=== PATIENT | female | born 1950 | race Caucasian/White ===

== ENCOUNTER 2022-08-05 11:33 | Outpatient (REF) | payer MEDICARE, OTHER, SELFPAY ==
--- NOTE | ~2022-08-05 | XR_ITS ---
EXAMINATION: XR LUMBOSACRAL SPINE CLINICAL INFORMATION: Postlaminectomy syndrome. Pain COMPARISON: None available. TECHNIQUE: Three views of the lumbosacral spine. FINDINGS: Patient is status post fusion of L2-L3 and L3-L4 with the hardware along the right side of the vertebral bodies and with spacers placement at the same level. There is straightening of lumbar lordosis and narrowing of T12-L1 intervertebral disc space XR/XR lumbar spine 2-3V IMPRESSION: Postsurgical changes with hardware in place.
--- NOTE | ~2022-08-05 | XR_ITS ---
EXAMINATION: XR PELVIS CLINICAL INFORMATION: Sacrococcygeal disorder COMPARISON: None available. TECHNIQUE: AP view of the pelvis and lateral view of the sacrum. FINDINGS: The bones and soft tissues are normal. No fracture. Sacroiliac and hip joints are normal. Pubic symphysis is normal. No abnormal soft tissue calcifications. Sacrum is unremarkable XR/XR pelvis min 3V IMPRESSION: Normal pelvis.
== END 2022-08-05 11:34 | disposition home or self-care (01) ==
LOC: HO.XRAY 11:33
PROVIDERS: PCP Family Medicine; Visit Provider Anesthesiology
DX: M53.3 Sacrococcygeal disorders, not elsewhere classified (principal); M46.1 Sacroiliitis, not elsewhere classified; M96.1 Postlaminectomy syndrome, not elsewhere classified; I10 Essential (primary) hypertension; E03.9 Hypothyroidism, unspecified
CPT/HCPCS: 72100; 72190; 99202

== ENCOUNTER 2022-08-20 06:07 | Outpatient (REF) | payer MEDICARE, OTHER, SELFPAY ==
--- NOTE | ~2022-08-20 | FL_ITS ---
EXAMINATION: XR FLUOROSCOPY WITH IMAGES CLINICAL INFORMATION: Sacrococcygeal disorders, not elsewhere classified COMPARISON: None available. TECHNIQUE: Fluoroscopy Supervised By: Dr. Grant. Fluoroscopy Time: 0.1. Cumulative Dose: 2.77 mGy. DAP: 0.452 Gycm2. Images: 1. FINDINGS: Images demonstrate needle placement and contrast injection of the right sacroiliac joint. FL/FL guidance in treatment room IMPRESSION: Fluoroscopy guidance for right sacroiliac joint injection.
== END 2022-08-20 06:08 | disposition home or self-care (01) ==
LOC: CF 06:07
PROVIDERS: Visit Provider Anesthesiology
DX: M53.3 Sacrococcygeal disorders, not elsewhere classified (principal); M46.1 Sacroiliitis, not elsewhere classified; M96.1 Postlaminectomy syndrome, not elsewhere classified
CPT/HCPCS: 27096

== ENCOUNTER → 2022-08-22 09:50 | Outpatient (BNVA) | payer MEDICARE, OTHER, SELFPAY | PROVIDERS: PCP Family Medicine; Visit Provider Anesthesiology | DX: M46.1 Sacroiliitis, not elsewhere classified (principal); M53.3 Sacrococcygeal disorders, not elsewhere classified; M96.1 Postlaminectomy syndrome, not elsewhere classified | CPT/HCPCS: 99212 ==

== ENCOUNTER → 2022-08-28 10:44 | Outpatient (BNVA) | payer MEDICARE, OTHER, SELFPAY | PROVIDERS: PCP Family Medicine; Visit Provider Anesthesiology | DX: M46.1 Sacroiliitis, not elsewhere classified (principal); M53.3 Sacrococcygeal disorders, not elsewhere classified; M96.1 Postlaminectomy syndrome, not elsewhere classified | CPT/HCPCS: 99212 ==

== ENCOUNTER 2022-10-23 14:10 | Outpatient (AMB) | payer MEDICARE, OTHER, SELFPAY ==
--- NOTE | 2022-10-23 14:14 | MHC.OFFVIS ---
Intake Vital Signs 10/23/22 14:20 Height 5 ft 6 in Weight 187 lb 8 oz BMI 30.3 BP 138/82 Blood Pressure Location Lt brachial Position Sitting Respiration 18 Pulse 60 Pulse Source Pulse Oximeter Pulse Oximetry (%) 98 Oxygen Delivery Method Room Air Intake Visit Reasons: follow up about SIJ Fusion Intake Note: patient comes in for pill count. Allergies Sulfa (Sulfonamide Antibiotics) [SULFA (SULFONAMIDE ANTIBIOTICS)] Allergy (Mild, Verified 10/23/22 14:21) HIVES HPI HPI Comments History of Present Illness Details Ria is back in my office to discuss possibility of sacroiliac joint fusion procedure. I explained everything about the procedure to the patient. I personally believe that she might be noted trivial airway and we will refer her to [facility]. In any way she cannot have household help before the end of December. She would need to schedule her procedure in January. Mobility limitations after sacroiliac joint fusion were explained to the patient. Activities of daily living related to the sacroiliac joint fusion were also explained to the patient. Prior: a very pleasant 72 years old female who came to days ago for right sacroiliac joint diagnostic injection. She came today to discuss possibility of treating her sacroiliac joint pain. Prolonged and extensive conversation was done to discuss the procedure of sacroiliac joint innervation stimulation curonix versus sacroiliac joint fusion with pain tech. She chose to go for sacroiliac joint fusion. She denies history of osteoporosis. the results of diagnostic right sacroiliac joint injection is very encouraging:. She reported on 1st couple of hours 50% pain relief, on next couple of hours she reported 100% pain relief, she reported excellent range of motion and better activities of daily living she reported significant improvement of night sleep after the procedure. She reported that she did not sleep for long period of time the way she slept last night after the procedure. The pain is starting to come back at this time. She does not have osteoporosis. I offered her SI joint stabilization and fusion with allograft. She wants to see the device on her own and she would like to schedule in person appointment, I will explain to her SI joint fusion SI joint innervation stimulation as well as SI joint therapeutic steroid injections. Review of Systems Const All systems reviewed & are unremarkable except as noted in HPI and below Physical Exam Vital Signs: Last Vital Signs Pulse 60 10/23/22 14:20 Resp 18 08/23/23 14:20 BP 138/82 10/23/22 14:20 Pulse Ox 98 10/23/22 14:20 Oxygen Delivery Method Room Air 10/23/22 14:20 BMI result Body Mass Index 30.3 Const General: no acute distress Nutritional Appearance: average body habitus and overweight Eyes General: appearance normal, both eyes and all related structures EOM: EOMs intact bilaterally Neck Neck: Yes full ROM Chest Chest palpation & inspection: normal inspection of the chest Resp Effort & Inspection: normal respiratory effort, able to speak in complete sentences, normal respiratory pattern, no audible wheezes and no cough Cardio Jugular venous distension: no JVD GI Inspection: Yes normal to inspection Back/Spine/Pelvis Other: Very well-healed scar on the right flank evident of previous fusion lumbar. Jalil test is positive on the right. Gaenslen test is positive on the right. Fourteen finger test is negative bilaterally. Pelvis compression test is positive for the pain on the right. Pelvic distruction test is positive on the right. SLR is negative bilaterally although she reports some discomfort in the back on SLR on the right. Extrem General: No pedal edema Psych Speech and movement: Normal speech and movement present Affect: normal affect Attitude: cooperative Thought process: Normal thought process present Thought content: Normal thought content present Insight: Good insight present (Psych) Judgement: Good judgement present (Psych) Assessment & Plan Assessment & Plan (1) Sacroiliitis: Code(s): M46.1 - Sacroiliitis, not elsewhere classified (2) Sacroiliac dysfunction: Code(s): M53.3 - Sacrococcygeal disorders, not elsewhere classified (3) Postlaminectomy syndrome of lumbar region: Code(s): M96.1 - Postlaminectomy syndrome, not elsewhere classified Plan This patient came to me with intention to receive sacroiliac joint PNS, she read about it in the Flyer. The nature of the procedure was exhaustively explained to the patient need for psychological evaluation was explained to the patient. Sacroiliac joint stabilization with fusion also was discussed. She chose to go for sacroiliac joint fusion. She stated that she had no history of osteoporosis in the past. She is nonsmoker. I think she might be a good candidate for sacroiliac joint fusion. She is unable to go for the procedure until the end of the December when she will have household help to help her with recovery. She will schedule the appointment accordingly with OR scheduling. Limitations were explained to the patient in activities of daily living as well as in mobilities. She will be sent to PAT with anesthesiology because she might be a potential difficult airway. Sacroiliac joint innervation stimulation was also briefly discussed. Coding Level of Care Code Est Pt Level 4 (45573) Diagnoses Sacroiliitis M46.1 Sacroiliac dysfunction M53.3 Postlaminectomy syndrome of lumbar region M96.1
[2022-10-23 14:20] VITALS: BP 138/82; PULSE 60; RESP 18; O2SAT 98; BMI 30.3
== END 2022-10-23 14:33 | disposition home or self-care (01) ==
PROVIDERS: PCP Family Medicine; Visit Provider Anesthesiology
DX: M46.1 Sacroiliitis, not elsewhere classified (principal); M53.3 Sacrococcygeal disorders, not elsewhere classified; M96.1 Postlaminectomy syndrome, not elsewhere classified
CPT/HCPCS: 99214

== ENCOUNTER → 2022-10-23 14:10 | Outpatient (BNVA) | payer MEDICARE, OTHER, SELFPAY | PROVIDERS: PCP Family Medicine; Visit Provider Anesthesiology | DX: Z51.81 Encounter for therapeutic drug level monitoring (principal); M96.1 Postlaminectomy syndrome, not elsewhere classified; M53.3 Sacrococcygeal disorders, not elsewhere classified | CPT/HCPCS: 99212 ==

== ENCOUNTER 2022-11-26 06:07 | Outpatient (REF) | payer MEDICARE, OTHER, SELFPAY ==
--- NOTE | ~2022-11-26 | FL_ITS ---
EXAMINATION: XR FLUOROSCOPY WITH IMAGES CLINICAL INFORMATION: Sacrococcygeal disorders, not elsewhere classified. Right sacroiliac joint. COMPARISON: None available. TECHNIQUE: Fluoroscopy Supervised By: Dr. Raul Grant. Fluoroscopy Time: 0.0 minutes. Cumulative Dose: 1.34 mGy. DAP: 0.367 Gycm2. Images: 1. FINDINGS: Images demonstrate needle placement and contrast injection of the right sacroiliac joint FL/FL guidance in treatment room IMPRESSION: Fluoroscopy guidance for sacroiliac joint injection
== END 2022-11-26 06:08 | disposition home or self-care (01) ==
LOC: CF 06:07
PROVIDERS: Visit Provider Anesthesiology
DX: M53.3 Sacrococcygeal disorders, not elsewhere classified (principal); M46.1 Sacroiliitis, not elsewhere classified; M96.1 Postlaminectomy syndrome, not elsewhere classified
CPT/HCPCS: 27096; J3301

== ENCOUNTER 2022-11-26 13:25 | Outpatient (AMB) | payer MEDICARE, OTHER, SELFPAY ==
--- NOTE | 2022-11-26 13:22 | MHC.OFFVIS ---
Intake Vital Signs 11/26/22 13:23 11/26/22 14:05 Height 5 ft 6 in 5 ft 6 in Weight 187 lb 187 lb BMI 30.2 30.2 BP 140/82 H 134/74 Blood Pressure Location Lt brachial Rt brachial Position Sitting Sitting Respiration 16 16 Pulse 58 58 Pulse Source Pulse Oximeter Pulse Oximeter Pulse Oximetry (%) 97 97 Oxygen Delivery Method Room Air Room Air Comment pre-op post-op Intake Visit Reasons: RIGHT THERAPEUTIC SIJ INJECTION Allergies Sulfa (Sulfonamide Antibiotics) [SULFA (SULFONAMIDE ANTIBIOTICS)] Allergy (Mild, Verified 11/26/22 13:22) HIVES Physical Exam Vital Signs: Last Vital Signs Pulse 58 11/26/22 14:05 Resp 16 11/26/22 14:05 BP 134/74 11/26/22 14:05 Pulse Ox 97 11/26/22 14:05 Oxygen Delivery Method Room Air 11/26/22 14:05 BMI result Body Mass Index 30.2 Assessment & Plan Assessment & Plan (1) Sacroiliitis: Code(s): M46.1 - Sacroiliitis, not elsewhere classified (2) Sacroiliac dysfunction: Code(s): M53.3 - Sacrococcygeal disorders, not elsewhere classified (3) Postlaminectomy syndrome of lumbar region: Code(s): M96.1 - Postlaminectomy syndrome, not elsewhere classified Plan: Right therapeutic sacroiliac joint injection Informed consent was explained thoroughly to the patient. All questions about benefits and risks for the procedure were answered. Patient came to the operating room and was positioned prone on the operating table with the pillow under the pelvis. Time out was performed delineating name and of the patient, allergies and the nature of the procedure. The lower back and buttocks of the patient were prepped with ChloraPrep prepped and draped with sterile utility towels. C-arm was brought over the operating field and sq picture of patient's pelvis was demonstrated on the screen. For the right joint tilting C-arm contralateral to the site of the joint the most posterior portion of the joints was superimposed with anterior silhouette of the joint. Skin was injected in the projection of the joint slightly medial to the location of the joint with 25 gauge 1/2 inch needle using local lidocaine 2% .After that 22 gauge 3 and 1/2 inch needle was driven to the right joint in tunnel vision fashion. When needle entered the joint capsule injection of the contrast was performed demonstrating intra-articular and minimally periarticular spread of the contrast. After that 4 cc. of ropivacaine 0.5% mixed with kenalog 40 mg was injected into the joint. Upon completion of the injections the needle was removed Sterile dressing was applied. Upon completion of the injection patient was taken outside of the operating room to the recovery room where recovered uneventfully. Plan This patient came to me with intention to receive sacroiliac joint PNS, she read about it in the Flyer. The nature of the procedure was exhaustively explained to the patient need for psychological evaluation was explained to the patient. Sacroiliac joint stabilization with fusion also was discussed. She chose to go for sacroiliac joint fusion. She stated that she had no history of osteoporosis in the past. She is nonsmoker. I think she might be a good candidate for sacroiliac joint fusion. She is unable to go for the procedure until the end of the December when she will have household help to help her with recovery. She will schedule the appointment accordingly with OR scheduling. Limitations were explained to the patient in activities of daily living as well as in mobilities. She will be sent to PAT with anesthesiology because she might be a potential difficult airway. Sacroiliac joint innervation stimulation was also briefly discussed. Coding Level of Care Code Procedure Only Diagnoses Sacroiliitis M46.1 Sacroiliac dysfunction M53.3 Postlaminectomy syndrome of lumbar region M96.1
[2022-11-26 13:23] VITALS: BP 140/82; PULSE 58; RESP 16; O2SAT 97; BMI 30.2
[2022-11-26 14:05] VITALS: BP 134/74; PULSE 58; RESP 16; O2SAT 97; BMI 30.2
== END 2022-11-26 14:03 | disposition home or self-care (01) ==
LOC: HO.PMCPRC 13:25
PROVIDERS: PCP Family Medicine; Visit Provider Anesthesiology
DX: M46.1 Sacroiliitis, not elsewhere classified (principal); M53.3 Sacrococcygeal disorders, not elsewhere classified; M96.1 Postlaminectomy syndrome, not elsewhere classified
CPT/HCPCS: 27096

== ENCOUNTER 2022-12-23 12:59 | Outpatient (AMB) | payer MEDICARE, OTHER, SELFPAY ==
[2022-12-23 13:22] VITALS: BP 190/89; PULSE 62; O2SAT 93; BMI 30.2
--- NOTE | 2022-12-23 13:22 | MHC.OFFVIS ---
Intake Vital Signs 12/23/22 13:22 Height 5 ft 6 in Weight 187 lb BMI 30.2 BP 190/89 H Blood Pressure Location Lt brachial Position Sitting Pulse 62 Pulse Source Pulse Oximeter Pulse Oximetry (%) 93 Oxygen Delivery Method Room Air Intake Visit Reasons: RIGHT THERAPEUTIC SIJ INJECTION Intake Note: Pt states SIJ steroid inj only gave relief for 2 days. BP re-check 138/76 manual cuff Allergies Sulfa (Sulfonamide Antibiotics) [SULFA (SULFONAMIDE ANTIBIOTICS)] Allergy (Mild, Verified 12/23/22 13:24) HIVES Medication List - Last Reconciled 12/23/22 by Delmi Cole RN amlodipine mg PO furosemide 20 mg PO DAILY hydrocortisone 2.5% appl topical BID levothyroxine 150 mcg PO DAILY losartan 100 mg PO DAILY metoprolol succinate ER 100 mg PO DAILY sertraline 100 mg PO DAILY tramadol 50 mg PO BID PRN HPI HPI Comments History of Present Illness Details Ria is back in my office to discuss the results of therapeutic sacroiliac joint injection which was performed on 11/26/2022. It was done on insurance demand to perform this procedure. However the attention was attracted today that the patient reported only 2 days of pain relief on therapeutic injection of the sacroiliac joint. Also she is scheduled for CT scan to evaluate the bony pelvis. Still possibility exists that her pain is not related to the sacroiliac joint. Pathology in the pelvic pain needs to be ruled out. Also I would like to perform diagnostic sacroiliac joint innervation injection under sedation on the right for this patient to make sure that I am dealing with the correct pain generator. In the past we were in preparation of sacroiliac joint fusion procedure. I explained everything about the procedure to the patient. I personally believe that she might be noted trivial airway and we will refer her to [facility]. In any way she cannot have household help before the end of December. She would need to schedule her procedure in January. Mobility limitations after sacroiliac joint fusion were explained to the patient. Activities of daily living related to the sacroiliac joint fusion were also explained to the patient. Prior: a very pleasant 72 years old female who came to days ago for right sacroiliac joint diagnostic injection. She came today to discuss possibility of treating her sacroiliac joint pain. Prolonged and extensive conversation was done to discuss the procedure of sacroiliac joint innervation stimulation curonix versus sacroiliac joint fusion with pain tech. She chose to go for sacroiliac joint fusion. She denies history of osteoporosis. the results of diagnostic right sacroiliac joint injection is very encouraging:. She reported on 1st couple of hours 50% pain relief, on next couple of hours she reported 100% pain relief, she reported excellent range of motion and better activities of daily living she reported significant improvement of night sleep after the procedure. She reported that she did not sleep for long period of time the way she slept last night after the procedure. The pain is starting to come back at this time. She does not have osteoporosis. I offered her SI joint stabilization and fusion with allograft. She wants to see the device on her own and she would like to schedule in person appointment, I will explain to her SI joint fusion SI joint innervation stimulation as well as SI joint therapeutic steroid injections. Review of Systems Const All systems reviewed & are unremarkable except as noted in HPI and below Physical Exam Vital Signs: Last Vital Signs Pulse 62 12/23/22 13:22 BP 190/89 H 12/23/22 13:22 Pulse Ox 93 12/23/22 13:22 Oxygen Delivery Method Room Air 12/23/22 13:22 BMI result Body Mass Index 30.2 Const General: no acute distress Nutritional Appearance: average body habitus and overweight Eyes General: appearance normal, both eyes and all related structures EOM: EOMs intact bilaterally Neck Neck: Yes full ROM Chest Chest palpation & inspection: normal inspection of the chest Resp Effort & Inspection: normal respiratory effort, able to speak in complete sentences, normal respiratory pattern, no audible wheezes and no cough Cardio Jugular venous distension: no JVD GI Inspection: Yes normal to inspection Back/Spine/Pelvis Other: Very well-healed scar on the right flank evident of previous fusion lumbar. Jalil test is positive on the right. Gaenslen test is positive on the right. Fourteen finger test is negative bilaterally. Pelvis compression test is positive for the pain on the right. Pelvic distruction test is positive on the right. SLR is negative bilaterally although she reports some discomfort in the back on SLR on the right. Extrem General: No pedal edema Psych Speech and movement: Normal speech and movement present Affect: normal affect Attitude: cooperative Thought process: Normal thought process present Thought content: Normal thought content present Insight: Good insight present (Psych) Judgement: Good judgement present (Psych) Assessment & Plan Assessment & Plan (1) Sacroiliitis: Code(s): M46.1 - Sacroiliitis, not elsewhere classified (2) Sacroiliac dysfunction: Code(s): M53.3 - Sacrococcygeal disorders, not elsewhere classified (3) Postlaminectomy syndrome of lumbar region: Code(s): M96.1 - Postlaminectomy syndrome, not elsewhere classified (4) Chronic right sacroiliac joint pain: Code(s): M53.3 - Sacrococcygeal disorders, not elsewhere classified; G89.29 - Other chronic pain Plan This patient came to me with intention to receive sacroiliac joint PNS, she read about it in the Flyer. The nature of the procedure was exhaustively explained to the patient need for psychological evaluation was explained to the patient. Sacroiliac joint stabilization with fusion also was discussed. She chose to go for sacroiliac joint fusion. She stated that she had no history of osteoporosis in the past. She is nonsmoker. I think she might be a good candidate for sacroiliac joint fusion. She is unable to go for the procedure until the end of the December when she will have household help to help her with recovery. She will schedule the appointment accordingly with OR scheduling. The insurance requirements for this procedure to perform sacroiliac joint injection with steroids before proceeding with SI joint stabilization with fusion. The patient unfortunately on this procedure reported only 2 days of pain improvement. That is very unusual response to sacroiliac joint injection in the patient who had diagnostic injection with excellent pain relief. Now I have my doubts about her pain generator. I will schedule her for diagnostic sacroiliac joint innervation injection to formally assert or eliminate SI joint is her pain generator. She is also scheduled for bony pelvis CT to rule out any possible pathology which could result in pain resembling sacroiliac joint pain. Because this procedure involves 11 sometimes 12 needle sticks I will schedule under moderate sedation. During sedation ketamine and fentanyl will be avoided. Patient Instructions: I here by testify that I spent 35 minutes today in conversation with this patient as well as planning her care re-evaluating her images and organizing her note. Coding Level of Care Code Est Pt Level 4 (06818) Diagnoses Sacroiliitis M46.1 Sacroiliac dysfunction M53.3 Postlaminectomy syndrome of lumbar region M96.1 Chronic right sacroiliac joint pain M53.3; G89.29
== END 2022-12-23 14:05 | disposition home or self-care (01) ==
PROVIDERS: PCP Family Medicine; Visit Provider Anesthesiology
DX: M46.1 Sacroiliitis, not elsewhere classified (principal); M53.3 Sacrococcygeal disorders, not elsewhere classified; M96.1 Postlaminectomy syndrome, not elsewhere classified; G89.29 Other chronic pain
CPT/HCPCS: 99214

== ENCOUNTER → 2022-12-23 12:59 | Outpatient (BNVA) | payer MEDICARE, OTHER, SELFPAY | PROVIDERS: PCP Family Medicine; Visit Provider Anesthesiology | DX: M46.1 Sacroiliitis, not elsewhere classified (principal); M53.3 Sacrococcygeal disorders, not elsewhere classified; M96.1 Postlaminectomy syndrome, not elsewhere classified; G89.29 Other chronic pain | CPT/HCPCS: 99212 ==

== ENCOUNTER 2023-01-10 05:55 | Day surgery (SDC) | payer MEDICARE, OTHER, SELFPAY ==
--- NOTE | 2023-01-09 10:01 | P.CONAN_ITS ---
Documented by User: Sridevi Kellogg NP 01/09/23 10:20 HPI - Anesthesia Eval Consult details Narrative: 72yo F for Right Sacroiliac Joint Innervation Injection Possible DI per Dr Grant note, never booked for PAT by Pain Office. Incomplete Medical Hx documented by proceduralist - per med hx likely HTN, ? heart disease. Unable to reach patient by phone to adequately assess hx. PMFSH Active Problems Active Problems: All Active Problems (Updated 12/23/22 @ 17:47 by Raul Grant MD) Chronic right sacroiliac joint pain (Acute) Postlaminectomy syndrome of lumbar region (Acute) Sacroiliitis (Acute) Sacroiliac dysfunction (Acute) Past Medical History Medical History Depression Hypothyroid Hypertension Surgical History Surgical History Hx of biopsy Hx of spinal fusion Hx of foot surgery Social History Social History Patient Tobacco Use Status: Never used Tobacco Use of substances other than those prescribed or required for medical reasons: Yes Substance Use Type Other:: CBD Gummy occasional (1-2 x's monthly) Substance Use Frequency: Monthly Are you DNR?: Yes Advance Directives: No Advance Directives Information Provided: Yes Meds Allergies Allergy/AdvReac Type Severity Reaction Status Date / Time Sulfa (Sulfonamide Allergy Mild HIVES Verified 01/10/23 06:08 Antibiotics) [SULFA (SULFONAMIDE ANTIBIOTICS)] Home Medications Medication Instructions Recorded Confirmed Last Taken Type amlodipine 5 mg tablet 5 mg PO DAILY 08/05/22 01/10/23 01/10/23 History furosemide 20 mg tablet 20 mg PO DAILY 08/05/22 01/10/23 01/09/23 History hydrocortisone 2.5 % topical cream appl topical BID 08/05/22 12/23/22 Unknown History levothyroxine 150 mcg tablet 150 mcg PO DAILY 08/05/22 01/10/23 01/09/23 History losartan 100 mg tablet 100 mg PO DAILY 08/05/22 01/10/23 01/10/23 History metoprolol succinate 100 mg 100 mg PO DAILY 08/05/22 01/10/23 01/10/23 History tablet,extended release 24 hr sertraline 100 mg tablet 100 mg PO DAILY 08/05/22 01/10/23 01/09/23 History tramadol 50 mg tablet 50 mg PO BID PRN Pain 08/05/22 01/10/23 01/09/23 History Exam Exam Date and Time: January 09, 2023 1001 Assessment and Plan Assessment Anesthesia Assessment: Chart Reviewed Documented by User: Shantelle Candelario MD 01/10/23 07:43 [facility] Past Medical History Medical History Depression Hypothyroid Hypertension Family History Family history of problems with anesthesia: No Surgical History Surgical History Hx of biopsy Hx of spinal fusion Hx of foot surgery History of Problems with Anesthesia: No Social History Social History Patient Tobacco Use Status: Never used Tobacco Use of substances other than those prescribed or required for medical reasons: Yes Substance Use Type Other:: CBD Gummy occasional (1-2 x's monthly) Substance Use Frequency: Monthly Are you DNR?: Yes Advance Directives: No Advance Directives Information Provided: Yes Meds Allergies Allergy/AdvReac Type Severity Reaction Status Date / Time Sulfa (Sulfonamide Allergy Mild HIVES Verified 01/10/23 06:08 Antibiotics) [SULFA (SULFONAMIDE ANTIBIOTICS)] Home Medications Medication Instructions Recorded Confirmed Last Taken Type amlodipine 5 mg tablet 5 mg PO DAILY 08/05/22 01/10/23 01/10/23 History furosemide 20 mg tablet 20 mg PO DAILY 08/05/22 01/10/23 01/09/23 History hydrocortisone 2.5 % topical cream appl topical BID 08/05/22 12/23/22 Unknown History levothyroxine 150 mcg tablet 150 mcg PO DAILY 08/05/22 01/10/23 01/09/23 History losartan 100 mg tablet 100 mg PO DAILY 08/05/22 01/10/23 01/10/23 History metoprolol succinate 100 mg 100 mg PO DAILY 08/05/22 01/10/23 01/10/23 History tablet,extended release 24 hr sertraline 100 mg tablet 100 mg PO DAILY 08/05/22 01/10/23 01/09/23 History tramadol 50 mg tablet 50 mg PO BID PRN Pain 08/05/22 01/10/23 01/09/23 History Exam Airway Mallampati Class: II TM Dist: >3cm Neck ROM: Full Heart: rrr Lungs: cta Assessment and Plan Assessment Anesthesia Assessment: Anesthesia Plan Discussed Final Anesthetic Review Family History of Problems with Anesthesia: No History of Problems with Anesthesia: No NPO: Yes ASA Class: II Final Preanesthetic Review: No Changes in Pt Med Stat, Meds/Allgs Chart Reviewed, Consent Obtained/Reviewed and Anes Risks/Benef Reviewed Patient Risk: Low Procedure Risk: Low Anesthetic Plan Anesthetic Plan: MAC: Disposition: Standard PACU
--- NOTE | 2023-01-09 15:36 | MHC.SHP ---
Pre-Procedural Eval Section A Date of Service: 01/09/23 The patient is an INPATIENT: No Changes since office visit: Yes Patient answered all questions The History & Physical has been completed within 30 days and I have reviewed it.: No Section B Chief Complaint: Sacrococcygeal disorders,Sacroiliitis Details of Present Illness: as above Relevant Family History (Specify if Yes): No Relevant Social History: None Present Medications: None Medical History: No relevant PMH History of Previous Operations: No relevant previous surgery Allergies: Allergies Allergy/AdvReac Type Severity Reaction Status Date / Time Sulfa (Sulfonamide Allergy Mild HIVES Verified 12/23/22 13:24 Antibiotics) [SULFA (SULFONAMIDE ANTIBIOTICS)] Review of Systems Sugical H&P ROS: Negative: Constitution, Cardiovascular, Respiratory, Neurological, Psychiatric, Hem-Onc, Allergic/Immunologic, Gastrointestinal, Genitourinary, Integumentary, Endocrine and Eyes/Ears/Nose/Throat and Yes, Specify: Musculoskeletal ( sacroiliitis) Exam Surgical H&P Exam: Normal: HEENT, Normal: Heart, Normal: Lungs, Normal: Extremities, Normal: Abdomen, Normal: Skin and Normal: Neurological Plan Diagnosis/Plan: Unchanged I have reviewed the history and physical and performed a pertinent physical examination on my patient. No changes have occurred unless specified. Time Spent With Patient Time: Total time managing care of this patient today ____ minutes.
--- NOTE | ~2023-01-10 | FL_ITS ---
EXAMINATION: XR FLUOROSCOPY WITH IMAGES CLINICAL INFORMATION: Sacroiliac joint innervation. COMPARISON: None available. TECHNIQUE: Fluoroscopy Supervised By: Dr. Raul Grant. Fluoroscopy Time: 0.5 minutes. Cumulative Dose: 16.0 mGy. DAP: 2.82 Gycm2. Images: 6. FINDINGS: Images demonstrate needle placement and contrast injection over the right sacroiliac joint and needle placement over the right lateral sacrum. FL/FL guidance in OR IMPRESSION: Fluoroscopic guidance for pain management procedure
[2023-01-10 06:00] VITALS: BMI 29.0
[2023-01-10 06:29] VITALS: BP 145/67; PULSE 58; RESP 16; TEMP 36; O2SAT 94
[2023-01-10] MEDS: Lactated Ringers 1,000 ML 100 ML IVCONT (06:29)
[2023-01-10 08:10] VITALS: BP 115/57; PULSE 61; RESP 12; TEMP 36.7; O2SAT 97
--- NOTE | 2023-01-10 08:17 | PM.OP ---
Brief Operative Note Date of Service: 01/10/23 Pre-op diagnosis: Sacroiliitis right Post-op diagnosis: same Procedure: diagnostic sacroiliac joint innervation injection on the right. Surgeon: Raul Grant MD Anesthesia: MAC Was an Cutter Banana Room used for this Procedure?: No Estimated blood loss (mL): 0 Condition: stable Disposition: PACU
--- NOTE | 2023-01-10 08:18 | P.OP_ITS ---
Operative Note Operative Note Date of Service: 01/10/23 Narrative: Ria is very pleasant 72 years old female who came to the operating room today to perform diagnostic sacroiliac joint innervation injection on the right. We do this procedure to diagnose or rule out sacroiliitis as the source of her pain. Informed consent was obtained patient was informed about bleeding infection peripheral nerve damage is possible risks. Patient was taken inside of the operating room and she was positioned prone on the operating table. [employer] monitors were applied and patient was moderately to deeply sedated. Time-out was performed delineating correct side and site and procedure name and date of of the patient, allergies, needs for DVT prophylaxis needs for antibiotics which are none. Her entire right buttock and right lower back were prepped with ChloraPrep and draped with self adhesive sterile utility towels. C-arm was brought over the operating field and sq picture of right pelvis was demonstrated on the screen. The initial point of interest were delineated as confluence of superior articular process of S1 on the right with sacral alae as well as most lowest point of the silhouette of the right sacroiliac joint on the medial side of the joint. The secondary point of interest were delineated as the points between the initial point of interests 1 cm apart in palisade fashion. Total of 11 point of interest were delineated. The skin in the projection of point of interest was injected with mixture of lidocaine 2% and ropivacaine 0.5% 1-1 in straight light fashion. After that the several 22 gauge 3-1/2 inch needles were driven to were the point of interest in tunnel vision fashion. When needle gently contacted the bone injection of the contrast was performed demonstrating no intravascular uptake of the contrast. After that injection of the small amount of ropivacaine 0.5% less than 1 cc at each needle was performed. Upon completion of the injections the needles were removed and sterile Band-Aids were applied. The patient tolerated procedure well she was awaken transferred to the stretcher and taken to the PACU for the recovery. She exhibited no immediate complications.
[2023-01-10 08:30] VITALS: BP 132/73; PULSE 59; RESP 17; TEMP 36.7; O2SAT 97
== END 2023-01-10 08:56 | disposition home or self-care (01) ==
PROVIDERS: PCP Family Medicine; Visit Provider Anesthesiology
PROC: (CPT 64451; principal; 2023-01-10 07:30)
DX: M46.1 Sacroiliitis, not elsewhere classified (principal); M53.3 Sacrococcygeal disorders, not elsewhere classified; G89.29 Other chronic pain; I10 Essential (primary) hypertension; Z79.899 Other long term (current) drug therapy; Z88.2 Allergy status to sulfonamides
CPT/HCPCS: 64451; J2704; J2795; J3301; Q9967

== ENCOUNTER → 2023-01-10 05:55 | Outpatient (BNV) | payer MEDICARE, OTHER, SELFPAY | PROVIDERS: PCP Family Medicine; Visit Provider Anesthesiology | DX: M53.3 Sacrococcygeal disorders, not elsewhere classified (principal); M46.1 Sacroiliitis, not elsewhere classified | CPT/HCPCS: 27096 ==

== ENCOUNTER 2023-01-13 11:00 | Outpatient (AMB) | payer MEDICARE, OTHER, SELFPAY ==
--- NOTE | 2023-01-13 11:19 | A.OFFVIS_ITS ---
Intake Vital Signs 01/13/23 11:25 Height 5 ft 6 in Weight 187 lb 8 oz BMI 30.3 BP 138/62 Blood Pressure Location Lt brachial Position Sitting Respiration 14 Pulse 58 Pulse Oximetry (%) 94 Oxygen Delivery Method Room Air Intake Visit Reasons: s/p RT Dx SIJ Innervation Inj 01/10/23 Allergies Sulfa (Sulfonamide Antibiotics) [SULFA (SULFONAMIDE ANTIBIOTICS)] Allergy (Mild, Verified 01/13/23 11:25) HIVES HPI HPI Comments History of Present Illness Details Ria is back in my office after diagnostic right sacroiliac joint innervation injection which was performed for her on 01/10/2023. She reported before the procedure pain was 4/10 at rest and 7/10 with activity. She reported that immediately after the procedure the pain was 1-2 with rest as well as with activity. She reported from 1st hour to 5th lower her pain was 1/10 with rest and as well as with activity. At the 6 hours the patient reported pain 1 to 2/10 and her usual pain did not affect her activities. She went to bed after that when she woke up next morning her pain was 3-4 in a.m. and 5-6 in the afternoon. She noticed significant pain increase with usual activities of sweeping floor and mopping. All of the above demonstrates that right sacroiliac joint significant pain generator for this patient. The patient has pain in the projection of the right trochanter as well but this might be difficult to differentiate. Most likely I believe this will be unrelated to her sacroiliac joint pain generator. We discussed possibility of treating her today with sacroiliac joint stabilization with fusion versus stimulation of the sacroiliac joint innervation on the right. The patient is more interested in fusion. She is scheduled to go for pelvic CT to rule out red flags for the pathology. In the past she had an MRI of the lumbar spine which did not demonstrate any significant surgically correctable changes. In anticipation of performing sacroiliac joint innervation stimulation she was sent for psychological evaluation. There were no significant diagnosis of somatoform disorder or generalized pain disorder on on the exam. The pain of the patient is below L5 vertebra. The physical examination dictated as below. She denies history of osteoporosis. She denies history of smoking. Prior: therapeutic sacroiliac joint injection which was performed on 11/26/2022. It was done on insurance demand to perform this procedure. However the attention was attracted today that the patient reported only 2 days of pain relief on therapeutic injection of the sacroiliac joint. Also she is scheduled for CT scan to evaluate the bony pelvis. Still possibility exists that her pain is not related to the sacroiliac joint. Pathology in the pelvic pain needs to be ruled out. Also I would like to perform diagnostic sacroiliac joint innervation injection under sedation on the right for this patient to make sure that I am dealing with the correct pain generator. In the past we were in preparation of sacroiliac joint fusion procedure. I explained everything about the procedure to the patient. I personally believe that she might be noted trivial airway and we will refer her to PAT. In any way she cannot have household help before the end of December. She would need to schedule her procedure in January. Mobility limitations after sacroiliac joint fusion were explained to the patient. Activities of daily living related to the sacroiliac joint fusion were also explained to the patient. the results of diagnostic right sacroiliac joint injection is very encouraging:. She reported on 1st couple of hours 50% pain relief, on next couple of hours she reported 100% pain relief, she reported excellent range of motion and better activities of daily living she reported significant improvement of night sleep after the procedure. She reported that she did not sleep for long period of time the way she slept last night after the procedure. The pain is starting to come back at this time. She does not have osteoporosis. I offered her SI joint stabilization and fusion with allograft. She wants to see the device on her own and she would like to schedule in person appointment, I will explain to her SI joint fusion SI joint innervation stimulation as well as SI joint therapeutic steroid injections. [facility] Medical History Depression Hypothyroid Hypertension Surgical History Hx of biopsy Hx of spinal fusion Hx of foot surgery Social History Patient Tobacco Use Status: Never used Tobacco Review of Systems Const All systems reviewed & are unremarkable except as noted in HPI and below Physical Exam Vital Signs: Last Vital Signs Pulse 58 01/13/23 11:25 Resp 14 01/13/23 11:25 BP 138/62 01/13/23 11:25 Pulse Ox 94 01/13/23 11:25 Oxygen Delivery Method Room Air 01/13/23 11:25 BMI result Body Mass Index 30.3 Const General: no acute distress Nutritional Appearance: average body habitus and overweight Eyes General: appearance normal, both eyes and all related structures EOM: EOMs intact bilaterally Neck Neck: Yes full ROM Chest Chest palpation & inspection: normal inspection of the chest Resp Effort & Inspection: normal respiratory effort, able to speak in complete sentences, normal respiratory pattern, no audible wheezes and no cough Cardio Jugular venous distension: no JVD GI Inspection: Yes normal to inspection Back/Spine/Pelvis Other: Very well-healed scar on the right flank evident of previous fusion lumbar. Jalil test is positive on the right. Gaenslen test is positive on the right. Fourteen finger test is negative bilaterally. Pelvis compression test is positive for the pain on the right. Pelvic distruction test is positive on the right. SLR is negative bilaterally although she reports some discomfort in the back on SLR on the right. Loading test is negative bilaterally. The patient exhibits very mild tenderness on palpation in the projection of right trochanter I do not believe this is major pain generator for the patient. Extrem General: No pedal edema Psych Speech and movement: Normal speech and movement present Affect: normal affect Attitude: cooperative Thought process: Normal thought process present Thought content: Normal thought content present Insight: Good insight present (Psych) Judgement: Good judgement present (Psych) Assessment & Plan Assessment & Plan (1) Sacroiliitis: Code(s): M46.1 - Sacroiliitis, not elsewhere classified (2) Sacroiliac dysfunction: Code(s): M53.3 - Sacrococcygeal disorders, not elsewhere classified (3) Postlaminectomy syndrome of lumbar region: Code(s): M96.1 - Postlaminectomy syndrome, not elsewhere classified (4) Chronic right sacroiliac joint pain: Code(s): M53.3 - Sacrococcygeal disorders, not elsewhere classified; G89.29 - Other chronic pain Plan In the preparation of the SI joint fusion which patient would like to perform in March she was sent for CT scan of the lower lumbar spine and pelvic bones. This is to rule out potential red flags related to the painful area. After CT scan is performed I will schedule the patient for sacroiliac joint fusion. She wants to perform this procedure in March/April. Possibility of treatment with sacroiliac joint innervation stimulation was also discussed today. Patient wishes to try her iliac joint fusion 1st. Coding Level of Care Code Est Pt Level 3 (82170) Diagnoses Sacroiliitis M46.1 Sacroiliac dysfunction M53.3 Postlaminectomy syndrome of lumbar region M96.1 Chronic right sacroiliac joint pain M53.3; G89.29
[2023-01-13 11:25] VITALS: BP 138/62; PULSE 58; RESP 14; O2SAT 94; BMI 30.3
== END 2023-01-13 11:48 | disposition home or self-care (01) ==
PROVIDERS: PCP Family Medicine; Visit Provider Anesthesiology
DX: M46.1 Sacroiliitis, not elsewhere classified (principal); M53.3 Sacrococcygeal disorders, not elsewhere classified; M96.1 Postlaminectomy syndrome, not elsewhere classified; G89.29 Other chronic pain
CPT/HCPCS: 99213

== ENCOUNTER → 2023-01-13 11:00 | Outpatient (BNVA) | payer MEDICARE, OTHER, SELFPAY | PROVIDERS: PCP Family Medicine; Visit Provider Anesthesiology | DX: M53.3 Sacrococcygeal disorders, not elsewhere classified (principal); M46.1 Sacroiliitis, not elsewhere classified; M96.1 Postlaminectomy syndrome, not elsewhere classified | CPT/HCPCS: 99212 ==

== ENCOUNTER 2023-01-17 16:18 | Outpatient (REF) | payer MEDICARE, OTHER, SELFPAY ==
--- NOTE | ~2023-01-17 | CT_ITS ---
EXAMINATION: CT PELVIS WITHOUT CONTRAST CLINICAL INFORMATION: Sacrococcygeal disorders, not elsewhere classified. Sacroiliac dysfunction. COMPARISON: 08/05/2022 TECHNIQUE: Helical scanning was performed with submillimeter collimation through the pelvis. Sagittal and coronal multiplanar 2-D reconstructions were obtained. This CT examination was performed using dose optimization techniques as appropriate, variously including the following: *Automated exposure control *Adjustment of mA and/or kV according to patient size (this includes techniques or standardized protocols for targeted exams where dose is matched to indication/reason for exam; i.e. extremities or head) *Use of iterative reconstruction technique DLP: 795 mGy-cm FINDINGS: No fracture or malalignment. 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 Articular cortices appear relatively well defined without appreciable erosions. No fractures are identified. Sacrum and coccyx appear intact. There is degenerative spondylosis in the lower lumbar spine at L4-L5 and L5-S1. A disc bulge at L4-L5 combines with facet arthropathy and ligamentum flavum thickening to produce at least moderate central canal narrowing. Neural foraminal encroachment is evident on the left at L4-L5 and L5-S1. Fusion hardware is partially imaged within the L4 vertebral body. Minimal osteoarthritis in the hips and pubic symphysis. Diverticulosis is present in the descending and sigmoid colon. Calcific atherosclerosis is present in the abdominal aorta and iliac arteries. No acute intrapelvic findings. There is moderate fatty atrophy of the gluteus minimus muscles bilaterally and more mild atrophy of the gluteus medius muscles. Significant atrophy is noted in the imaged lumbosacral paraspinal musculature. CT/CT bony pelvis IMPRESSION: 1. 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 2. Degenerative spondylosis in the lower lumbar spine with at least moderate central canal narrowing at L4-L5 as well as left neural foraminal encroachment at L4-L5 and L5-S1
== END 2023-01-17 16:19 | disposition home or self-care (01) ==
LOC: HO.CT 16:18
PROVIDERS: PCP Family Medicine; Visit Provider Anesthesiology
DX: M53.3 Sacrococcygeal disorders, not elsewhere classified (principal)
CPT/HCPCS: 72192

== ENCOUNTER → 2023-02-03 10:42 | Outpatient (BNVA) | payer MEDICARE, OTHER, SELFPAY | PROVIDERS: PCP Family Medicine; Visit Provider Anesthesiology ==

== ENCOUNTER 2023-02-10 13:50 | Outpatient (AMB) | payer MEDICARE, OTHER, SELFPAY ==
--- NOTE | 2023-02-10 13:50 | MHC.OFFVIS ---
Intake Intake Visit Reasons: CT Results /lvm Allergies Sulfa (Sulfonamide Antibiotics) [SULFA (SULFONAMIDE ANTIBIOTICS)] Allergy (Mild, Verified 02/10/23 13:51) HIVES HPI HPI Comments History of Present Illness Details Ria is back in my office after diagnostic right sacroiliac joint innervation injection which was performed for her on 01/10/2023. She reported before the procedure pain was 4/10 at rest and 7/10 with activity. She reported that immediately after the procedure the pain was 1-2 with rest as well as with activity. She reported from 1st hour to 5th lower her pain was 1/10 with rest and as well as with activity. At the 6 hours the patient reported pain 1 to 2/10 and her usual pain did not affect her activities. She went to bed after that when she woke up next morning her pain was 3-4 in a.m. and 5-6 in the afternoon. She noticed significant pain increase with usual activities of sweeping floor and mopping. All of the above demonstrates that right sacroiliac joint significant pain generator for this patient. She was sent for CT scan of the pelvis and results of with dictated as below. Shortly CT scan demonstrates significant changes in bilateral sacroiliac joints as well as some spondylotic changes. The CT scan did not demonstrate any red flags such as growth or infection. I will schedule this procedure for sacroiliac joint fusion stabilization pain tech I believe this procedure will be a good help for this patient's pain. We discussed possibility of treating her today with sacroiliac joint stabilization with fusion versus stimulation of the sacroiliac joint innervation on the right. The patient is more interested in fusion. The physical examination from the previous note is as follow: Page Gaenslen test is positive on the right pelvic compression and pelvic destruction tests are positive on the right Jalil test is positive on the right Stinchfield test is positive on the right. Loading test is negative bilaterally.. SLR test is negative bilateral. Lassegue test is negative bilaterally. Valsalva maneuver is negative for pain increase. She denies history of osteoporosis. She denies history of smoking. She does not have 50 history of fibromyalgia or somatoform disorder. Multiple medications were tried to treat this patient's pain including muscle relaxants such as tizanidine and cyclobenzaprine a, gabapentin, NSAIDs, Tylenol, none was effective for her. Tramadol gives her some pain relief however it is opioid. She was subject of physical therapy in the past and physical therapy aggravates her pain. Prior: therapeutic sacroiliac joint injection which was performed on 11/26/2022. It was done on insurance demand to perform this procedure. However the attention was attracted today that the patient reported only 2 days of pain relief on therapeutic injection of the sacroiliac joint. Also she is scheduled for CT scan to evaluate the bony pelvis. Pathology in the pelvic pain needs to be ruled out. Also I would like to perform diagnostic sacroiliac joint innervation injection under sedation on the right for this patient to make sure that I am dealing with the correct pain generator. In the past we were in preparation of sacroiliac joint fusion procedure. I explained everything about the procedure to the patient. I personally believe that she might be noted trivial airway and we will refer her to PAT. In any way she cannot have household help before the end of December. She would need to schedule her procedure in January. Mobility limitations after sacroiliac joint fusion were explained to the patient. Activities of daily living related to the sacroiliac joint fusion were also explained to the patient. the results of diagnostic right sacroiliac joint injection is very encouraging:. She reported on 1st couple of hours 50% pain relief, on next couple of hours she reported 100% pain relief, she reported excellent range of motion and better activities of daily living she reported significant improvement of night sleep after the procedure. She reported that she did not sleep for long period of time the way she slept last night after the procedure. The pain is starting to come back at this time. She does not have osteoporosis. I offered her SI joint stabilization and fusion with allograft. PFSH Medical History Depression Hypothyroid Hypertension Surgical History Hx of biopsy Hx of spinal fusion Hx of foot surgery Social History Comment: NO COUNTS REQUIRED FOR THIS PROCEDURE Patient Tobacco Use Status: Never used Tobacco Review of Systems Const All systems reviewed & are unremarkable except as noted in HPI and below Results Reviewed Results Reviewed: CT scan bony pelvis.: Findings: No fracture or malalignment. Icng-vh-rwynsuld osteoarthritis in the SI joints bilaterally, correct arise by marginal osteophytes, sclerosis, and vacuum phenomenon. Articular car T-cell is appears relatively well defined without appreciable erosions. No fractures are identified. Sacrum and coccyx appear intact. There is degenerative spondylosis in the lower lumbar spine at L4-5 and L5-S1. A disc bulge at L4-5 combined with facet arthropathy and ligamentum flavum thickening produces moderate central canal narrowing. Neural foraminal encroachment is evident on the left at L4-5 and L5-S1. Fusion hardware is partially imaged within the L4 vertebral body. Diverticulosis is present in the standing and sigmoid colon. Calcific alter sclerosis is present in the abdominal aorta and iliac arteries. No acute inter pelvic findings. Moderate fatty atrophy of the gluteus minimus muscles bilaterally in more mild atrophy of blue choose medius muscles significant atrophies noted in the imaged lumbosacral paraspinal musculature. Impression cofa-pn-gieizlhb osteoarthritis of SI joint bilaterally. Degenerative spondylosis of lumbar spine with at least moderate central canal narrowing at L4-5 as well as left neural foraminal encroachment at L4-5 and L5-S1. Assessment & Plan Assessment & Plan (1) Sacroiliitis: Code(s): M46.1 - Sacroiliitis, not elsewhere classified (2) Sacroiliac dysfunction: Code(s): M53.3 - Sacrococcygeal disorders, not elsewhere classified (3) Postlaminectomy syndrome of lumbar region: Code(s): M96.1 - Postlaminectomy syndrome, not elsewhere classified (4) Chronic right sacroiliac joint pain: Code(s): M53.3 - Sacrococcygeal disorders, not elsewhere classified; G89.29 - Other chronic pain Plan In the preparation of the SI joint fusion which patient would like to perform in March she was sent for CT scan of the lower lumbar spine and pelvic bones. This is to rule out potential red flags related to the painful area. CT scan is negative for red flags and positive for sacroiliac joint pathology. I will schedule her for sacroiliac joint fusion as discussed prior. Possibility of treatment with sacroiliac joint innervation stimulation was also discussed today. Patient wishes to try her SI joint fusion 1st. Patient Instructions: I here by testify that I spent 30 minutes today in conversation with this patient. Telehealth Telehealth Location of provider rendering services: practice address Location of patient: address on file Patient Identification confirmed using: Name, : Yes Telehealth method: voice only Patient verbally consented to treatment: Yes Patient verbally consented to billing insurance company: Yes Patient informed of any privacy concerns related to visit: Yes Coding Level of Care Code Tele Est Pt Level 4 (33331) Diagnoses Sacroiliitis M46.1 Sacroiliac dysfunction M53.3 Postlaminectomy syndrome of lumbar region M96.1 Chronic right sacroiliac joint pain M53.3; G89.29
== END 2023-02-10 14:01 | disposition home or self-care (01) ==
LOC: HO.PMC 13:50
PROVIDERS: PCP Family Medicine; Visit Provider Anesthesiology
DX: M46.1 Sacroiliitis, not elsewhere classified (principal); G89.29 Other chronic pain; M53.3 Sacrococcygeal disorders, not elsewhere classified; M96.1 Postlaminectomy syndrome, not elsewhere classified
CPT/HCPCS: 99443

== ENCOUNTER → 2023-02-10 13:50 | Outpatient (BNVA) | payer MEDICARE, OTHER, SELFPAY | PROVIDERS: PCP Family Medicine; Visit Provider Anesthesiology ==

== ENCOUNTER 2023-06-20 07:17 | Day surgery (SDC) | payer MEDICARE, OTHER, SELFPAY ==
[2023-06-20] VITALS (7 sets, daily range): BP systolic 116–167; BP diastolic 54–90; PULSE 55–61; RESP 15–16; TEMP 36.4–36.8; O2SAT 93–97; BMI 28.6
--- NOTE | ~2023-06-20 | FL_ITS ---
EXAMINATION: XR FLUOROSCOPY WITH IMAGES CLINICAL INFORMATION: Sacroiliac joint stabilization with fusion COMPARISON: CT pelvis 02/04/2023 TECHNIQUE: Fluoroscopy Supervised By: Dr. Raul Grant. Fluoroscopy Time: 1 minute 14.9 seconds. Cumulative Dose: 38.693 mGy. DAP: 16.831 Gycm2. Images: 6. FINDINGS: With the patient in the prone position, metallic instruments are projected over the right sacroiliac joint. There is partial visualization of a fixation device in the L4 vertebral body. FL/FL guidance in OR IMPRESSION: Fluoroscopic guidance was provided for Dr. Grant for sacroiliac joint stabilization with fusion.
--- NOTE | 2023-06-20 08:29 | PC.NURSE ---
Per patient, HCP is patients daughterИрина. Phone number in system.
[2023-06-20] MEDS: Lactated Ringers 1,000 ML 80 ML IVCONT (08:32)
--- NOTE | 2023-06-20 08:34 | P.CONAN_ITS ---
[facility] Active Problems Active Problems: All Active Problems Chronic right sacroiliac joint pain (Acute) Postlaminectomy syndrome of lumbar region (Acute) Sacroiliitis (Acute) Sacroiliac dysfunction (Acute) Past Medical History Medical History Depression Hypothyroid Hypertension Family History Family history of problems with anesthesia: No Surgical History Surgical History Hx of biopsy Hx of spinal fusion Hx of foot surgery History of Problems with Anesthesia: No Social History Social History Comment: NO COUNTS REQUIRED FOR THIS PROCEDURE Patient Tobacco Use Status: Former Tobacco user Quit Date: 1982 Tobacco use type: Cigarette Years Smoked: 10 Smoked in Last 30 Days: No Use of substances other than those prescribed or required for medical reasons: No Are you DNR?: No Advance Directives: Yes Advance Directives Information Provided: Yes Advance Directives on File: No Advance Directives Date on File: 06/20/23 Meds Allergies Allergy/AdvReac Type Severity Reaction Status Date / Time Sulfa (Sulfonamide Allergy Mild HIVES Verified 06/20/23 07:40 Antibiotics) [SULFA (SULFONAMIDE ANTIBIOTICS)] Active Medications: Current Medications Lactated Ringer's (Lr) 1,000 mls @ 80 mls/hr IVCONT .[id number] SANGITA Last Admin: 06/20/23 08:32 Dose: 80 mls/hr Home Medications ?Medication ?Instructions ?Recorded ?Confirmed ?Last Taken ?Type amlodipine 5 mg tablet 5 mg PO DAILY 08/05/22 06/20/23 06/20/23 History furosemide 20 mg tablet 20 mg PO DAILY 08/05/22 06/20/23 06/20/23 History hydrocortisone 2.5 % topical cream 1 appl topical BID 08/05/22 06/20/23 Unknown History levothyroxine 150 mcg tablet 150 mcg PO DAILY 08/05/22 06/20/23 06/20/23 History losartan 100 mg tablet 100 mg PO DAILY 08/05/22 06/20/23 06/20/23 History metoprolol succinate 100 mg 100 mg PO DAILY 08/05/22 06/20/23 06/20/23 History tablet,extended release 24 hr sertraline 100 mg tablet 100 mg PO DAILY 08/05/22 06/20/23 06/20/23 History tramadol 50 mg tablet 50 mg PO BID PRN Pain 08/05/22 06/20/23 06/20/23 History mirabegron 25 mg tablet,extended 25 mg PO DAILY 06/20/23 06/20/23 06/20/23 History release 24 hr (Myrbetriq) Exam Height,Weight and Vital Signs: Height 5 ft 6 in Weight 80.286 kg Last Vital Signs Temp 98.3 F 06/20/23 07:51 Pulse 55 06/20/23 07:51 Resp 16 06/20/23 07:51 BP 163/63 H 06/20/23 07:51 Pulse Ox 96 06/20/23 07:51 O2 Del Method Room Air 06/20/23 07:51 Airway Mallampati Class: II TM Dist: >3cm Neck ROM: Full Loose/Missing/Broken Teeth: No Heart: rrr Lungs: cta Assessment and Plan Final Anesthetic Review Family History of Problems with Anesthesia: No History of Problems with Anesthesia: No NPO: Yes ASA Class: II Final Preanesthetic Review: No Changes in Pt Med Stat, Meds/Allgs Chart Reviewed, Consent Obtained/Reviewed and Anes Risks/Benef Reviewed Patient Risk: Intermediate Procedure Risk: Intermediate Anesthetic Plan Anesthetic Plan: GA Disposition: Standard PACU
--- NOTE | 2023-06-20 08:35 | P.HPSUR_ITS ---
Pre-Procedural Eval Section A - 24 Hr Update-Section A only Date of Service: 06/20/23 The patient is an INPATIENT: No Changes since office visit: Yes Patient answered all questions The patient has been examined within 24 hours of the surgical procedure. The History & Physical has been completed within 30 days and I have reviewed it.: No Section B - Complete if H&P > 30 days Chief Complaint: Sacrococcygeal disorders,sacroiliitis, Details of Present Illness: as above Relevant Family History (Specify if Yes): No Relevant Social History: None Present Medications: None Medical History: No relevant PMH History of Previous Operations: No relevant previous surgery Allergies: Allergies Allergy/AdvReac Type Severity Reaction Status Date / Time Sulfa (Sulfonamide Allergy Mild HIVES Verified 06/20/23 07:40 Antibiotics) [SULFA (SULFONAMIDE ANTIBIOTICS)] Review of Systems Sugical H&P ROS: Negative: Constitution, Cardiovascular, Respiratory, Neuro logical, Psychiatric, Hem-Onc, Allergic/Immunologic, Gastrointestinal, Genitourinary, Integumentary, Endocrine and Eyes/Ears/Nose/Throat and Yes, Specify: Musculoskeletal ( sacroiliitis) Exam Surgical H&P Exam: Normal: HEENT, Normal: Heart, Normal: Lungs, Normal: Extremities, Normal: Abdomen, Normal: Skin and Normal: Neurological Plan Diagnosis/Plan: Unchanged I have reviewed the history and physical and performed a pertinent physical examination on my patient. No changes have occurred unless specified.I will perform a sacroiliac joint stabilization with fusion. Time Spent With Patient Time: Total time managing care of this patient today ____ minutes.
--- NOTE | 2023-06-20 10:38 | P.BOP_ITS ---
Brief Operative Note Date of Service: 06/20/23 Pre-op diagnosis: Sacroiliitis, SI joint pain on the right. Post-op diagnosis: same Procedure: Sacroiliac joint stabilization with fusion. Implants: Lyophilized cadaver bone element with the ortho - biologicals. Surgeon: Raul Grant MD Was an Infrastructure Project Manager used for this Procedure?: No Estimated blood loss (mL): 16 Pathology: none sent Condition: stable Disposition: PACU
--- NOTE | 2023-06-20 11:03 | P.OP_ITS ---
Operative Note Operative Note Date of Service: 06/20/23 Narrative: Right sacroiliac joint stabilisation procedure. posterior sacroiliac joint fusion using LINQ SI joint stabilization system with C-arm fluoroscopy for guidance.? Ms Greene is very pleasant 73 years old female who is suffering now the right sacroiliac joint insufficiency and sacroiliitis. She failed conservative management of sacroiliitis.??She came today to receive the procedures as above.??The risks and benefits including bleeding, infection, peripheral nerve damage, failure to reduce the pain were explained to the patient.?The patient came to the operating room, he was positioned on the stretcher supine, [place] [employer] monitors were applied and patient was administered with general endotracheal anesthesia.??After that the patient was transferred on operating table and positioned prone with all pressure points protected. The patient was administered 2 grams cefazolin IV approximately 25 minutes before the start of the procedure.? Time-out was performed delineating correct site, side, and nature of the procedure, name and date of of the patient, risk of fire, need for DVT prophylaxis, need for antibiotics.? The patient was transferred?on?radiolucent table. All pressure points were protected again. Lower back and bilateral buttocks were prepped with ChloraPrep and draped with full body drape including ioban film.. 3. 5 cm posterior midline incision over the projection of the righ S1 foramina was performed.? Soft tissue dissection done to sacroiliac joint and thorough blind dissection was made in the direction of the?sacroiliac joint. Blunt? K-wire pin was inserted into the sacroiliac joint and guiding instrument was inserted into the joint using the pin as a guide and advanced into the joint on the intermittent anterior posterior and lateral views.??? After that pin was removed and rasping device was inserted to broach and rasp sacroiliac joint.? Once joint was prepared and inserted the structural allograft implant was hammered into the joint . It was packed with ortho biologics in and around the implant to provide better opportunity? for bones fusion.? The position of the allograft was confirmed radiographically.? The wound was irrigated, hemostasis was achieved, wound was closed in 2 layers.? Surgery was concluded by performing standard suture closing technique:? 0 Polysorb suture was used to close the wound and dalia were used to apptoximate the level of the skin.? Injection of the lidocaine 2% mixed with bupivacaine 0.5% was injected into the wound before closure.? Skin glue was applied to the skin edges, Steri-Strips were applied..? Sterile?dressing was applied with bacitracin ointment .? The patient tolerated procedure well he was awaken, extubated and taken outside of the operating room to PACU where he recovered uneventfully. She went home without immediate complications. She will be wearing an SI joint fixation belt for the 10 weeks after the procedure.
== END 2023-06-20 11:52 | disposition home or self-care (01) ==
PROVIDERS: PCP Family Medicine; Visit Provider Anesthesiology
PROC: (CPT 27279; principal; 2023-06-20 09:00)
DX: M46.1 Sacroiliitis, not elsewhere classified (principal); G89.29 Other chronic pain; M53.3 Sacrococcygeal disorders, not elsewhere classified; M96.1 Postlaminectomy syndrome, not elsewhere classified; I10 Essential (primary) hypertension; E03.9 Hypothyroidism, unspecified; F32.A Depression, unspecified; Z79.899 Other long term (current) drug therapy; Z88.2 Allergy status to sulfonamides; Z87.891 Personal history of nicotine dependence
CPT/HCPCS: 27279; C1713; J0690; J2704; J2795; J3010; J3370

== ENCOUNTER → 2023-06-20 07:17 | Outpatient (BNV) | payer MEDICARE, OTHER, SELFPAY | PROVIDERS: PCP Family Medicine; Visit Provider Anesthesiology | DX: M46.1 Sacroiliitis, not elsewhere classified (principal); M53.3 Sacrococcygeal disorders, not elsewhere classified | CPT/HCPCS: 27279 ==

== ENCOUNTER 2023-06-26 11:05 | Outpatient (AMB) | payer MEDICARE, OTHER, SELFPAY ==
--- NOTE | 2023-06-26 11:18 | A.OFFVIS_ITS ---
Vital Signs 06/26/23 11:20 Height 5 ft 6 in Weight 182 lb 6 oz BMI 29.4 Intake Visit Reasons: S/p (R) SIJ Fusion 06/20/23 Allergies Sulfa (Sulfonamide Antibiotics) [SULFA (SULFONAMIDE ANTIBIOTICS)] Allergy (Mild, Verified 06/20/23 07:40) HIVES HPI Comments Details: Ria is back in my office after sacroiliac joint stabilization with fusion which was performed on 06/20/2023. She is wearing sacroiliac joint belt. She reports very minimal pain today. She reports that she did not feel much of the pain since the procedure. She observes all the mobility limitations. The site of the procedure is healing well. There is no edema Steri-Strips competent. There is no tenderness on palpation. The dressing was changed today. The patient is doing okay. Next appointment in 1 week. Prior: diagnostic right sacroiliac joint innervation injection which was performed for her on 01/10/2023. She reported before the procedure pain was 4/10 at rest and 7/10 with activity. She reported that immediately after the procedure the pain was 1-2 with rest as well as with activity. She reported from 1st hour to 5th lower her pain was 1/10 with rest and as well as with activity. At the 6 hours the patient reported pain 1 to 2/10 and her usual pain did not affect her activities. She went to bed after that when she woke up next morning her pain was 3-4 in a.m. and 5-6 in the afternoon. She noticed significant pain increase with usual activities of sweeping floor and mopping. All of the above demonstrates that right sacroiliac joint significant pain generator for this patient. She was sent for CT scan of the pelvis and results of with dictated as below. Shortly CT scan demonstrates significant changes in bilateral sacroiliac joints as well as some spondylotic changes. The CT scan did not demonstrate any red flags such as growth or infection. I will schedule this procedure for sacroiliac joint fusion stabilization pain tech I believe this procedure will be a good help for this patient's pain. We discussed possibility of treating her today with sacroiliac joint stabilization with fusion versus stimulation of the sacroiliac joint innervation on the right. The patient is more interested in fusion. The physical examination from the previous note is as follow: Page Gaenslen test is positive on the right pelvic compression and pelvic destruction tests are positive on the right Jalil test is positive on the right Stinchfield test is positive on the right. Loading test is negative bilaterally.. SLR test is negative bilateral. Lassegue test is negative bilaterally. Valsalva maneuver is negative for pain increase. She denies history of osteoporosis. She denies history of smoking. She does not have 50 history of fibromyalgia or somatoform disorder. Multiple medications were tried to treat this patient's pain including muscle relaxants such as tizanidine and cyclobenzaprine a, gabapentin, NSAIDs, Tylenol, none was effective for her. Tramadol gives her some pain relief however it is opioid. She was subject of physical therapy in the past and physical therapy aggravates her pain. Prior: therapeutic sacroiliac joint injection which was performed on 11/26/2022. It was done on insurance demand to perform this procedure. However the attention w as attracted today that the patient reported only 2 days of pain relief on therapeutic injection of the sacroiliac joint. Also she is scheduled for CT scan to evaluate the bony pelvis. Pathology in the pelvic pain needs to be ruled out. Also I would like to perform diagnostic sacroiliac joint innervation injection under sedation on the right for this patient to make sure that I am dealing with the correct pain generator. In the past we were in preparation of sacroiliac joint fusion procedure. I explained everything about the procedure to the patient. I personally believe that she might be noted trivial airway and we will refer her to PAT. In any way she cannot have household help before the end of December. She would need to schedule her procedure in January. Mobility limitations after sacroiliac joint fusion were explained to the patient. Activities of daily living related to the sacroiliac joint fusion were also explained to the patient. the results of diagnostic right sacroiliac joint injection is very encouraging:. She reported on 1st couple of hours 50% pain relief, on next couple of hours she reported 100% pain relief, she reported excellent range of motion and better activities of daily living she reported significant improvement of night sleep after the procedure. She reported that she did not sleep for long period of time the way she slept last night after the procedure. The pain is starting to come back at this time. She does not have osteoporosis. I offered her SI joint stabilization and fusion with allograft. [facility] Medical History (Updated 06/20/23 @ 08:37 by Nasra Canela) Urinary incontinence Depression Hypothyroid Hypertension Surgical History Hx of biopsy Hx of spinal fusion Hx of foot surgery Social History Comment: NO COUNTS REQUIRED FOR THIS PROCEDURE Patient Tobacco Use Status: Former Tobacco user Quit Date: 1982 Tobacco use type: Cigarette Years Smoked: 10 Advance Directives Date on File: 06/20/23 Review of Systems Const All systems reviewed & are unremarkable except as noted in HPI and below Physical Exam Vital Signs: BMI result Body Mass Index 29.4 Const General: no acute distress Nutritional Appearance: average body habitus and overweight Eyes General: appearance normal, both eyes and all related structures EOM: EOMs intact bilaterally Neck Neck: Yes full ROM Chest Chest palpation & inspection: normal inspection of the chest Resp Effort & Inspection: normal respiratory effort, able to speak in complete sentences, normal respiratory pattern, no audible wheezes and no cough Cardio Jugular venous distension: no JVD GI Inspection: Yes normal to inspection Back/Spine/Pelvis Other: Very well-healed scar on the right flank evident of previous fusion lumbar. Jalil test is positive on the right. Gaenslen test is positive on the right. Fourteen finger test is negative bilaterally. Pelvis compression test is positive for the pain on the right. Pelvic distruction test is positive on the right. SLR is negative bilaterally although she reports some discomfort in the back on SLR on the right. Loading test is negative bilaterally. The patient exhibits very mild tenderness on palpation in the projection of right trochanter I do not believe this is major pain generator for the patient. Extrem General: No pedal edema Psych Speech and movement: Normal speech and movement present Affect: normal affect Attitude: cooperative Thought process: Normal thought process present Thought content: Normal thought content present Insight: Good insight present (Psych) Judgement: Good judgement present (Psych) Assessment & Plan Assessment & Plan (1) Sacroiliitis: Code(s): M46.1 - Sacroiliitis, not elsewhere classified Category: Medical (2) Sacroiliac dysfunction: Code(s): M53.3 - Sacrococcygeal disorders, not elsewhere classified Category: Medical (3) Postlaminectomy syndrome of lumbar region: Code(s): M96.1 - Postlaminectomy syndrome, not elsewhere classified Category: Medical (4) Chronic right sacroiliac joint pain: Code(s): M53.3 - Sacrococcygeal disorders, not elsewhere classified; G89.29 - Other chronic pain Category: Medical Plan So far good results of SI joint fusion patient reports very minimal pain. Limitation of the mobilities and hygiene were reinforced with the patient. Patient expressed understanding. The sacroiliac joint belt was applied to the patient's hips the position of the belt was explained to the patient. Next appointment in 1 week. After that she would need to observe all the mobility limitations for 8 more weeks. She has walking shower so it has not the problem to get into the bathtub to have a shower. Coding Level of Care Code Est Pt Level 3 (78084) Diagnoses Sacroiliitis M46.1 Sacroiliac dysfunction M53.3 Postlaminectomy syndrome of lumbar region M96.1 Chronic right sacroiliac joint pain M53.3; G89.29
[2023-06-26 11:20] VITALS: BMI 29.4
== END 2023-06-26 11:21 | disposition home or self-care (01) ==
LOC: HO.PMC 11:05
PROVIDERS: PCP Family Medicine; Visit Provider Anesthesiology
DX: M46.1 Sacroiliitis, not elsewhere classified (principal); M53.3 Sacrococcygeal disorders, not elsewhere classified; M96.1 Postlaminectomy syndrome, not elsewhere classified; G89.29 Other chronic pain
CPT/HCPCS: 99024

== ENCOUNTER → 2023-06-26 11:05 | Outpatient (BNVA) | payer MEDICARE, OTHER, SELFPAY | PROVIDERS: PCP Family Medicine; Visit Provider Anesthesiology | DX: Z48.89 Encounter for other specified surgical aftercare (principal); Z98.1 Arthrodesis status | CPT/HCPCS: 99212 ==

== ENCOUNTER 2023-07-03 10:24 | Outpatient (AMB) | payer MEDICARE, OTHER, SELFPAY ==
--- NOTE | 2023-07-03 10:43 | MHC.OFFVIS ---
Vital Signs 07/03/23 10:59 Height 5 ft 6 in Weight 180 lb 6 oz BMI 29.1 BP 140/78 H Blood Pressure Location Lt brachial Position Sitting Respiration 14 Pulse 62 Pulse Source Pulse Oximeter Pulse Oximetry (%) 95 Oxygen Delivery Method Room Air Intake Visit Reasons: S/p (R) SIJ Fusion 06/20/23 *2nd visit* Intake Note: Patient comes in for follow up appointment. Reports pain 1/10. Allergies Sulfa (Sulfonamide Antibiotics) [SULFA (SULFONAMIDE ANTIBIOTICS)] Allergy (Mild, Verified 07/03/23 10:58) HIVES HPI Comments Details: Ria is back in my office after sacroiliac joint stabilization with fusion which was performed on 06/20/2023. She is wearing sacroiliac joint belt. She reports very minimal pain today. She reports that she did not feel much of the pain since the procedure. She observes all the mobility limitations. She reports minor discomfort in projection of the wound 1/10. Compared to what she had before the surgery 7/10 pain on sacroiliac joint it is very good. The healing of the sacroiliac joint arthrodesis is discussed with the patient. She continues to were sacroiliac joint belt. She will visit me in 2 months. Prior: diagnostic right sacroiliac joint innervation injection which was performed for her on 01/10/2023. She reported before the procedure pain was 4/10 at rest and 7/10 with activity. She reported that immediately after the procedure the pain was 1-2 with rest as well as with activity. She reported from 1st hour to 5th lower her pain was 1/10 with rest and as well as with activity. At the 6 hours the patient reported pain 1 to 2/10 and her usual pain did not affect her activities. She went to bed after that when she woke up next morning her pain was 3-4 in a.m. and 5-6 in the afternoon. She noticed significant pain increase with usual activities of sweeping floor and mopping. All of the above demonstrates that right sacroiliac joint significant pain generator for this patient. She was sent for CT scan of the pelvis and results of with dictated as below. Shortly CT scan demonstrates significant changes in bilateral sacroiliac joints as well as some spondylotic changes. The CT scan did not demonstrate any red flags such as growth or infection. I will schedule this procedure for sacroiliac joint fusion stabilization pain tech I believe this procedure will be a good help for this patient's pain. We discussed possibility of treating her today with sacroiliac joint stabilization with fusion versus stimulation of the sacroiliac joint innervation on the right. The patient is more interested in fusion. The physical examination from the previous note is as follow: Page Gaenslen test is positive on the right pelvic compression and pelvic destruction tests are positive on the right Jalil test is positive on the right Stinchfield test is positive on the right. Loading test is negative bilaterally.. SLR test is negative bilateral. Lassegue test is negative bilaterally. Valsalva maneuver is negative for pain increase. She denies history of osteoporosis. She denies history of smoking. She does not have 50 history of fibromyalgia or somatoform disorder. Multiple medications were tried to treat this patient's pain including muscle relaxants such as tizanidine and cyclobenzaprine a, gabapentin, NSAIDs, Tylenol, none was effective for her. Tramadol gives her some pain relief however it is opioid. She was subject of physical therapy in the past and physical therapy aggravates her pain. Prior: therapeutic sacroiliac joint injection which was performed on 11/26/2022. It was done on insurance demand to perform this procedure. However the attention was attracted today that the patient reported only 2 days of pain relief on therapeutic injection of the sacroiliac joint. Also she is scheduled for CT scan to evaluate the bony pelvis. Pathology in the pelvic pain needs to be ruled out. Also I would like to perform diagnostic sacroiliac joint innervation injection under sedation on the right for this patient to make sure that I am dealing with the correct pain generator. In the past we were in preparation of sacroiliac joint fusion procedure. I explained everything about the procedure to the patient. I personally believe that she might be noted trivial airway and we will refer her to [facility]. In any way she cannot have household help before the end of December. She would need to schedule her procedure in January. Mobility limitations after sacroiliac joint fusion were explained to the patient. Activities of daily living related to the sacroiliac joint fusion were also explained to the patient. the results of diagnostic right sacroiliac joint injection is very encouraging:. She reported on 1st couple of hours 50% pain relief, on next couple of hours she reported 100% pain relief, she reported excellent range of motion and better activities of daily living she reported significant improvement of night sleep after the procedure. She reported that she did not sleep for long period of time the way she slept last night after the procedure. The pain is starting to come back at this time. She does not have osteoporosis. I offered her SI joint stabilization and fusion with allograft. [facility] Medical History (Updated 06/20/23 @ 08:37 by Nasra Canela) Urinary incontinence Depression Hypothyroid Hypertension Surgical History Hx of biopsy Hx of spinal fusion Hx of foot surgery Social History Comment: NO COUNTS REQUIRED FOR THIS PROCEDURE Patient Tobacco Use Status: Former Tobacco user Quit Date: 1982 Tobacco use type: Cigarette Years Smoked: 10 Advance Directives Date on File: 06/20/23 Review of Systems Const All systems reviewed & are unremarkable except as noted in HPI and below Physical Exam Vital Signs: Last Vital Signs Pulse 62 07/03/23 10:59 Resp 14 07/03/23 10:59 BP 140/78 H 07/03/23 10:59 Pulse Ox 95 07/03/23 10:59 Oxygen Delivery Method Room Air 07/03/23 10:59 BMI result Body Mass Index 29.1 Const General: no acute distress Nutritional Appearance: average body habitus and overweight Eyes General: appearance normal, both eyes and all related structures EOM: EOMs intact bilaterally Neck Neck: Yes full ROM Chest Chest palpation & inspection: normal inspection of the chest Resp Effort & Inspection: normal respiratory effort, able to speak in complete sentences, normal respiratory pattern, no audible wheezes and no cough Cardio Jugular venous distension: no JVD GI Inspection: Yes normal to inspection Back/Spine/Pelvis Other: Very well-healed scar on the right flank evident of previous fusion lumbar. Jalil test is positive on the right. Gaenslen test is positive on the right. Fourteen finger test is negative bilaterally. Pelvis compression test is positive for the pain on the right. Pelvic distruction test is positive on the right. SLR is negative bilaterally although she reports some discomfort in the back on SLR on the right. Loading test is negative bilaterally. The patient exhibits very mild tenderness on palpation in the projection of right trochanter I do not believe this is major pain generator for the patient. Extrem General: No pedal edema Psych Speech and movement: Normal speech and movement present Affect: normal affect Attitude: cooperative Thought process: Normal thought process present Thought content: Normal thought content present Insight: Good insight present (Psych) Judgement: Good judgement present (Psych) Assessment & Plan Assessment & Plan (1) Sacroiliitis: Code(s): M46.1 - Sacroiliitis, not elsewhere classified Category: Medical (2) Sacroiliac dysfunction: Code(s): M53.3 - Sacrococcygeal disorders, not elsewhere classified Category: Medical (3) Postlaminectomy syndrome of lumbar region: Code(s): M96.1 - Postlaminectomy syndrome, not elsewhere classified Category: Medical (4) Chronic right sacroiliac joint pain: Code(s): M53.3 - Sacrococcygeal disorders, not elsewhere classified; G89.29 - Other chronic pain Category: Medical Plan So far good results of SI joint fusion patient reports very minimal pain. Limitation of the mobilities and hygiene were reinforced with the patient. Patient expressed understanding. The sacroiliac joint belt was applied to the patient's hips the position of the belt was explained to the patient. Next appointment in 2 months. Coding Level of Care Code Est Pt Level 3 (76515) Diagnoses Sacroiliitis M46.1 Sacroiliac dysfunction M53.3 Postlaminectomy syndrome of lumbar region M96.1 Chronic right sacroiliac joint pain M53.3; G89.29
[2023-07-03 10:59] VITALS: BP 140/78; PULSE 62; RESP 14; O2SAT 95; BMI 29.1
== END 2023-07-03 11:14 | disposition home or self-care (01) ==
PROVIDERS: PCP Family Medicine; Visit Provider Anesthesiology
DX: M46.1 Sacroiliitis, not elsewhere classified (principal); M53.3 Sacrococcygeal disorders, not elsewhere classified; M96.1 Postlaminectomy syndrome, not elsewhere classified; G89.29 Other chronic pain
CPT/HCPCS: 99024

== ENCOUNTER → 2023-07-03 10:24 | Outpatient (BNVA) | payer MEDICARE, OTHER, SELFPAY | PROVIDERS: PCP Family Medicine; Visit Provider Anesthesiology | DX: M46.1 Sacroiliitis, not elsewhere classified (principal); M53.3 Sacrococcygeal disorders, not elsewhere classified; M96.1 Postlaminectomy syndrome, not elsewhere classified; G89.29 Other chronic pain | CPT/HCPCS: 99212 ==

== ENCOUNTER 2023-09-01 11:23 | Outpatient (AMB) | payer MEDICARE, OTHER, SELFPAY ==
[2023-09-01 11:50] VITALS: BP 166/80; PULSE 56; RESP 16; O2SAT 96; BMI 28.6
--- NOTE | 2023-09-01 11:50 | MHC.OFFVIS ---
Vital Signs 09/01/23 11:50 Height 5 ft 6 in Weight 177 lb 6 oz BMI 28.6 BP 166/80 H Blood Pressure Location Lt brachial Position Sitting Respiration 16 Pulse 56 Pulse Source Pulse Oximeter Pulse Oximetry (%) 96 Oxygen Delivery Method Room Air Intake Visit Reasons: 2 MONTH FOLLOW UP Intake Note: Patient comes in for 2 months follow up. Reports pain 3/10. Allergies Sulfa (Sulfonamide Antibiotics) [SULFA (SULFONAMIDE ANTIBIOTICS)] Allergy (Mild, Verified 07/03/23 10:58) HIVES HPI Comments Details: Ria is back in my office after sacroiliac joint stabilization with fusion which was performed on 06/20/2023. She is wearing sacroiliac joint belt. She reports no pain in the sacroiliac joint on the right. She complains on pain in the projection of right trochanteric bursa. There is tenderness on palpation in the projection of right trochanteric bursa. Normally they treatment for this condition would be to inject trochanteric bursa with some local anesthetics and steroids. However this fresh after surgery for stabilization of the SI joint fusion I do not want to employed steroids for this patient. I recommended her to try topical anesthetics such as Aspercreme with lidocaine and capsaicin patch fall 1 after another. I also will send her for CT of the pelvis to demonstrate stable SI joint fusion. I offered her platelet rich plasma injection in the trochanteric bursa. I will do it under ultrasound guidance. She agreed to go for this procedure. I explained to the patient that this procedure is not covered by insurance and that she would need to cover the cost of $750 [id number]. Prior: diagnostic right sacroiliac joint innervation injection which was performed for her on 01/10/2023. She reported before the procedure pain was 4/10 at rest and 7/10 with activity. She reported that immediately after the procedure the pain was 1-2 with rest as well as with activity. She reported from 1st hour to 5th lower her pain was 1/10 with rest and as well as with activity. At the 6 hours the patient reported pain 1 to 2/10 and her usual pain did not affect her activities. She went to bed after that when she woke up next morning her pain was 3-4 in a.m. and 5-6 in the afternoon. She noticed significant pain increase with usual activities of sweeping floor and mopping. All of the above demonstrates that right sacroiliac joint significant pain generator for this patient. She was sent for CT scan of the pelvis and results of with dictated as below. Shortly CT scan demonstrates significant changes in bilateral sacroiliac joints as well as some spondylotic changes. The CT scan did not demonstrate any red flags such as growth or infection. I will schedule this procedure for sacroiliac joint fusion stabilization pain tech I believe this procedure will be a good help for this patient's pain. We discussed possibility of treating her today with sacroiliac joint stabilization with fusion versus stimulation of the sacroiliac joint innervation on the right. The patient is more interested in fusion. The physical examination from the previous note is as follow: Page Gaenslen test is positive on the right pelvic compression and pelvic destruction tests are positive on the right Jalil test is positive on the right Stinchfield test is positive on the right. Loading test is negative bilaterally.. SLR test is negative bilateral. Lassegue test is negative bilaterally. Valsalva maneuver is negative for pain increase. She denies history of osteoporosis. She denies history of smoking. She does not have 50 history of fibromyalgia or somatoform disorder. Multiple medications were tried to treat this patient's pain including muscle relaxants such as tizanidine and cyclobenzaprine a, gabapentin, NSAIDs, Tylenol, none was effective for her. Tramadol gives her some pain relief however it is opioid. She was subject of physical therapy in the past and physical therapy aggravates her pain. Prior: therapeutic sacroiliac joint injection which was performed on 11/26/2022. It was done on insurance demand to perform this procedure. However the attention was attracted today that the patient reported only 2 days of pain relief on therapeutic injection of the sacroiliac joint. Also she is scheduled for CT scan to evaluate the bony pelvis. Pathology in the pelvic pain needs to be ruled out. Also I would like to perform diagnostic sacroiliac joint innervation injection under sedation on the right for this patient to make sure that I am dealing with the correct pain generator. In the past we were in preparation of sacroiliac joint fusion procedure. I explained everything about the procedure to the patient. I personally believe that she might be noted trivial airway and we will refer her to [facility]. In any way she cannot have household help before the end of December. She would need to schedule her procedure in January. Mobility limitations after sacroiliac joint fusion were explained to the patient. Activities of daily living related to the sacroiliac joint fusion were also explained to the patient. the results of diagnostic right sacroiliac joint injection is very encouraging:. She reported on 1st couple of hours 50% pain relief, on next couple of hours she reported 100% pain relief, she reported excellent range of motion and better activities of daily living she reported significant improvement of night sleep after the procedure. She reported that she did not sleep for long period of time the way she slept last night after the procedure. The pain is starting to come back at this time. She does not have osteoporosis. I offered her SI joint stabilization and fusion with allograft. [facility] Medical History (Updated 06/20/23 @ 08:37 by Nasra Canela) Urinary incontinence Depression Hypothyroid Hypertension Surgical History Hx of biopsy Hx of spinal fusion Hx of foot surgery Social History Comment: NO COUNTS REQUIRED FOR THIS PROCEDURE Patient Tobacco Use Status: Former Tobacco user Tobacco use type: Cigarette Years Smoked: 10 Advance Directives Date on File: 06/20/23 Review of Systems Const All systems reviewed & are unremarkable except as noted in HPI and below Physical Exam Vital Signs: Last Vital Signs Pulse 56 09/01/23 11:50 Resp 16 09/01/23 11:50 BP 166/80 H 09/01/23 11:50 Pulse Ox 96 09/01/23 11:50 Oxygen Delivery Method Room Air 09/01/23 11:50 BMI result Body Mass Index 28.6 Const General: no acute distress Nutritional Appearance: average body habitus and overweight Eyes General: appearance normal, both eyes and all related structures EOM: EOMs intact bilaterally Neck Neck: Yes full ROM Chest Chest palpation & inspection: normal inspection of the chest Resp Effort & Inspection: normal respiratory effort, able to speak in complete sentences, normal respiratory pattern, no audible wheezes and no cough Cardio Jugular venous distension: no JVD GI Inspection: Yes normal to inspection Back/Spine/Pelvis Other: Very well-healed scar on the right flank evident of previous fusion lumbar. Jalil test is positive on the right. Gaenslen test is positive on the right. Fourteen finger test is negative bilaterally. Pelvis compression test is positive for the pain on the right. Pelvic distruction test is positive on the right. SLR is negative bilaterally although she reports some discomfort in the back on SLR on the right. Loading test is negative bilaterally. The patient exhibits very mild tenderness on palpation in the projection of right trochanter I do not believe this is major pain generator for the patient. Extrem General: No pedal edema Psych Speech and movement: Normal speech and movement present Affect: normal affect Attitude: cooperative Thought process: Normal thought process present Thought content: Normal thought content present Insight: Good insight present (Psych) Judgement: Good judgement present (Psych) Assessment & Plan Assessment & Plan (1) Sacroiliitis: Code(s): M46.1 - Sacroiliitis, not elsewhere classified Category: Medical (2) Sacroiliac dysfunction: Code(s): M53.3 - Sacrococcygeal disorders, not elsewhere classified Category: Medical (3) Postlaminectomy syndrome of lumbar region: Code(s): M96.1 - Postlaminectomy syndrome, not elsewhere classified Category: Medical (4) Chronic right sacroiliac joint pain: Code(s): M53.3 - Sacrococcygeal disorders, not elsewhere classified; G89.29 - Other chronic pain Category: Medical Plan Presents today after 2 months after fusion of the right SI joint. Excellent results no pain in projection of SI joint. Complains on pain projection in the right trochanteric bursa. Topical medication recommended. This close to the fusion I do not think steroid injection into the trochanteric bursa is a good option. I offered her PRP injection into the trochanteric bursa. I will send her also for CT scan of the pelvis to demonstrate solid fusion of the sacral and iliac bone on the right. Orders: Orders CT bony pelvis Today M53.3 - Sacrococcygeal disorders, not elsewhere classified Coding Level of Care Code Est Pt Level 3 (96442) Diagnoses Sacroiliitis M46.1 Sacroiliac dysfunction M53.3 Postlaminectomy syndrome of lumbar region M96.1 Chronic right sacroiliac joint pain M53.3; G89.29
== END 2023-09-01 12:00 | disposition home or self-care (01) ==
PROVIDERS: PCP Family Medicine; Visit Provider Anesthesiology
DX: M46.1 Sacroiliitis, not elsewhere classified (principal); M53.3 Sacrococcygeal disorders, not elsewhere classified; M96.1 Postlaminectomy syndrome, not elsewhere classified; G89.29 Other chronic pain
CPT/HCPCS: 99024

== ENCOUNTER → 2023-09-01 11:23 | Outpatient (BNVA) | payer MEDICARE, OTHER, SELFPAY | PROVIDERS: PCP Family Medicine; Visit Provider Anesthesiology | DX: M46.1 Sacroiliitis, not elsewhere classified (principal); M53.3 Sacrococcygeal disorders, not elsewhere classified; M96.1 Postlaminectomy syndrome, not elsewhere classified; G89.29 Other chronic pain; Z98.1 Arthrodesis status | CPT/HCPCS: 99212 ==

== ENCOUNTER 2023-09-30 15:14 | Outpatient (REF) | payer MEDICARE, OTHER, SELFPAY ==
--- NOTE | ~2023-09-30 | CT_ITS ---
EXAMINATION: CT PELVIS WITHOUT CONTRAST CLINICAL INFORMATION: Sacrococcygeal disorders, not elsewhere classified. Sacroiliac dysfunction. COMPARISON: 01/17/2023. TECHNIQUE: Helical scanning was performed with submillimeter collimation through the pelvis. Sagittal and coronal multiplanar 2-D reconstructions were obtained. This CT examination was performed using dose optimization techniques as appropriate, variously including the following: *Automated exposure control *Adjustment of mA and/or kV according to patient size (this includes techniques or standardized protocols for targeted exams where dose is matched to indication/reason for exam; i.e. extremities or head) *Use of iterative reconstruction technique DLP: 466 mGy-cm FINDINGS: PELVIS: -[id number] atheromatous changes of the aorta show right iliac vessels. -Sinus and uterus. -Small 1.2 cm left ovarian cyst is unchanged. No adnexal masses. -Diverticulosis of the sigmoid and descending colon. Normal appendix. -Normal urinary bladder. -Normal rectum and perirectal fat. -Normal ischio anal fossa. OSSEOUS STRUCTURES: -A new surgical graft is in place within the right sacral alar, abutting the fibrous SI joint on the right, but not extending within except involving the most posterior aspect. Otherwise, the SI joints have a stable appearance from the prior exam with mild to moderate osteoarthrosis bilaterally and small both superior and inferior osteophytes. Mild right lateral pelvic tilt is again noted. -No definite bony fusion is present through the SI joints. Vacuum phenomenon is again noted in the synovial aspects inferiorly on both sides. -There are no suspicious lytic or blastic bone lesion. -Partially imaged levoconvex scoliosis of the lumbar spine with partial imaged surgical hardware in L4. Disc vacuum phenomenon present at L4-5 and L5-S1 oriented to the left. Degenerative facet changes again present right greater than left L4-5, left greater than right L5-S1. Again, moderate central canal narrowing is present at L4-5, and mild L5-S1. Moderate neural foraminal encroachment on the left at L4-5 and L5-S1. -Hip joints are grossly normal in appearance with only minimal degenerative change. -Small superior enthesophytes are present left greater than right greater trochanters. MUSCULATURE: -Moderate atrophy of the gluteus minimus muscles bilaterally. Mild atrophy of the gluteus medius muscles bilaterally. Hip girdle musculature is otherwise normal. Atrophy of the oblique musculature inferiorly on the right is present, near the inguinal canal. CT/CT bony pelvis IMPRESSION: 1. There is been placement of a surgical device in the right sacral alar at the S1-S2 level, of which only the most posterior aspect extends into the fibrous right SI joint. Otherwise, the SI joints have a stable appearance from previous, with mild to moderate osteoarthrosis. 2. There is similar mild right pelvic tilt, likely secondary to scoliosis of the lumbar spine. 3. Stable degenerative spondylosis of the lower lumbar spine and partially imaged hardware in L4. 4. Moderate fatty atrophy of the gluteus minimus muscles, and mild atrophy of the gluteus medius muscles. Advanced atrophy of the inferior paraspinous musculature. 5. Atrophy of the right inferior oblique musculature, near the inguinal canal. 6. Additional ancillary findings as discussed in the body of report. Electronically signed by: Steve Portillo MD 11/07/2023 03:37 PM EDT
== END 2023-09-30 15:15 | disposition home or self-care (01) ==
LOC: HO.CT 15:14
PROVIDERS: PCP Family Medicine; Visit Provider Anesthesiology
DX: M53.3 Sacrococcygeal disorders, not elsewhere classified (principal)
CPT/HCPCS: 72192

== ENCOUNTER → 2023-09-30 15:16 | Outpatient (BNV) | payer MEDICARE, OTHER, SELFPAY | PROVIDERS: PCP Family Medicine; Visit Provider Radiology Diagnostic Radiology | DX: M53.3 Sacrococcygeal disorders, not elsewhere classified (principal) | CPT/HCPCS: 72192 ==